=== PATIENT | male | born 1940 | race Caucasian/White ===

== ENCOUNTER 2018-07-19 09:39 | Outpatient (REF) | payer MEDICARE, SELFPAY ==
[2018-07-19 21:48] LABS: Abs Immature Grans 0.01 k/cumm (0.0-0.09); Absolute Basophil Count 0.03 k/cumm (0.0-0.2); Absolute Eosinophil Count 0.31 k/cumm (0.0-0.7); Absolute Monocyte Count 0.85 k/cumm (0.11-0.7); Absolute Neutrophil Count 4.01 k/cumm (1.2-6.7); Basophils % 0.4; Eosinophils % 4.1; HCT 42.8 % (40.0-50.0); HGB 14.1 g/dL (13.5-17.5); Immature Grans % 0.1; Lymphocytes % 31.5; Mean Corp. HGB Concentration 32.9 g/dL (32.0-36.0); Mean Corpuscular Hemoglobin 29.9 pg (27.0-33.0); Mean Corpuscular Volume 90.7 fL (80-95); Mean Platelet Volume 10.5 fL (8.0-11.0); Monocytes % 11.2; Neutrophils % 52.7; Platelet Count 409 x1000/uL (130-400); RBC 4.72 m/cumm (4.50-6.00); RBC Distribution Width 15.1 % (11.8-14.1); White Blood Cell Count 7.61 k/cumm (4.4-10.8)
[2018-07-19 21:49] LABS: Anion Gap 6.5 mmol/L (3-11); BUN 21 mg/dL (7-18); CO2 29.5 mmol/L (21.0-32.0); CREATININE 0.77 mg/dL (0.70-1.30); Calcium 9.3 mg/dL (8.5-10.1); Chloride 104 mmol/L (98-107); Glucose 91 mg/dL (70-100); Potassium 4.7 mmol/L (3.5-5.1); Sodium 140 mmol/L (136-145)
[2018-07-23 10:23] LABS: Anaplasma phagocytophilum Negative (Negative); B. miyamotoi PCR Negative (Negative); Babesia divergens/MO-1 Negative (Negative); Babesia duncani Negative (Negative); Babesia microti Negative (Negative); Ehrlichia chaffeensis Negative (Negative); Ehrlichia ewingii/canis Negative (Negative); Ehrlichia muris eauclairensis Negative (Negative)
[2018-07-23 13:05] LABS: Lyme Ab w Rflx to Lyme Confirm Negative
== END 2018-07-19 09:59 ==
LOC: NCHCN 09:39
PROVIDERS: Visit Provider Nurse Practitioner Family
DX: M25.60 Stiffness of unspecified joint, not elsewhere classified (principal); W57.XXXA Bitten or stung by nonvenomous insect and other nonvenomous arthropods, initial encounter; T14.8XXA Other injury of unspecified body region, initial encounter
CPT/HCPCS: 80048; 85025; 86618; 87798

== ENCOUNTER 2018-07-27 09:59 | Outpatient (REF) | payer MEDICARE, SELFPAY ==
--- NOTE | 2018-07-27 08:30 | SKI_PTH ---
PATIENT: Robert Canseco LOC: [facility] U#:[id number] AGE/SX: 78/M ROOM: RE07/27/[address]: Orquidea Keys : 1940 BED: DIS: 07/27/2018 SPEC #: [id number] RECD: 07/30/18 12:44 STATUS: BRIANDA REEliecer #: [id number] YUDITH: 07/27/18 08:[address]: Orquidea Keys DEPT: Surgical Specimen RECD BY: Krystal Avelar ENTERED: 07/30/18 12:44 SP TYPE: TABITHA RESENDIZ DR: Celestine Chapman Tissues: 1 - SKIN BIOPSY(SHAVE/PUNCH) Procedures: SKIN LEVEL 4 Comments: [id number]
== END 2018-07-27 10:19 ==
LOC: LBN 09:59
PROVIDERS: Visit Provider Nurse Practitioner Family
DX: C44.612 Basal cell carcinoma of skin of right upper limb, including shoulder (principal)
CPT/HCPCS: 88305

== ENCOUNTER 2018-12-13 16:07 | Outpatient (REF) | payer MEDICARE, SELFPAY ==
[2018-12-13 21:46] LABS: ALT 21 U/L (12-78); AST 16 U/L (15-37); Albumin 3.3 g/dL (3.4-5.0); Alkaline Phosphatase 91 U/L (46-116); Anion Gap 6.3 mmol/L (3-11); BUN 23 mg/dL (7-18); Bilirubin, Total 0.4 mg/dL (0.2-1.0); CO2 29.7 mmol/L (21.0-32.0); CREATININE 1.33 mg/dL (0.70-1.30); Calcium 8.9 mg/dL (8.5-10.1); Chloride 103 mmol/L (98-107); Estimated GFR 51.87 (mL/min/1.73m2); Glucose 93 mg/dL (70-100); Potassium 4.5 mmol/L (3.5-5.1); Sodium 139 mmol/L (136-145); Total Protein 6.8 g/dL (6.4-8.2)
[2018-12-13 21:47] LABS: Abs Immature Grans 0.02 k/cumm (0.0-0.09); Absolute Basophil Count 0.04 k/cumm (0.0-0.2); Absolute Eosinophil Count 0.51 k/cumm (0.0-0.7); Absolute Lymphocyte Count 3.21 k/cumm (1.2-3.4); Absolute Monocyte Count 1.04 k/cumm (0.11-0.7); Absolute Neutrophil Count 3.91 k/cumm (1.2-6.7); Basophils % 0.5; Eosinophils % 5.8; HCT 38.8 % (40.0-50.0); HGB 12.7 g/dL (13.5-17.5); Immature Grans % 0.2; Lymphocytes % 36.8; Mean Corp. HGB Concentration 32.7 g/dL (32.0-36.0); Mean Corpuscular Hemoglobin 29.8 pg (27.0-33.0); Mean Corpuscular Volume 91.1 fL (80-95); Mean Platelet Volume 10.1 fL (8.0-11.0); Monocytes % 11.9; Neutrophils % 44.8; Platelet Count 403 x1000/uL (130-400); RBC 4.26 m/cumm (4.50-6.00); RBC Distribution Width 15.1 % (11.8-14.1); White Blood Cell Count 8.73 k/cumm (4.4-10.8)
== END 2018-12-13 16:27 ==
LOC: NCHCN 16:07
PROVIDERS: Visit Provider Family Medicine
DX: K92.1 Melena (principal)
CPT/HCPCS: 80053; 85025

== ENCOUNTER 2018-12-14 21:19 | Outpatient (REF) | payer MEDICARE, SELFPAY ==
[2018-12-17 11:27] LABS: Campylobacter PCR SEE COMMENTS; Salmonella PCR SEE COMMENTS; Shiga Toxin PCR SEE COMMENTS; Shigella/Enteroinvasive Ecoli SEE COMMENTS
== END 2018-12-14 21:39 ==
LOC: NCHCN 21:19
PROVIDERS: Visit Provider Family Medicine
DX: K92.1 Melena (principal)
CPT/HCPCS: 87505

== ENCOUNTER 2020-01-09 21:40 | Outpatient (REF) | payer MEDICARE, SELFPAY ==
[2020-01-11 10:50] LABS: Campylobacter PCR Negative (Negative); Salmonella PCR Negative (Negative); Shiga Toxin PCR Negative (Negative); Shigella/Enteroinvasive Ecoli Negative (Negative)
== END 2020-01-09 22:00 ==
LOC: NCHCN 21:40
PROVIDERS: Visit Provider Nurse Practitioner Family
DX: R19.7 Diarrhea, unspecified (principal)
CPT/HCPCS: 87329; 87505; 87177; 87324

== ENCOUNTER 2021-08-11 19:26 | Outpatient (REF) | payer MEDICARE, SELFPAY ==
[2021-08-11 21:03] LABS: Hemoglobin A1C 6.1 % (<5.7)
[2021-08-11 21:04] LABS: Calculated LDL 135 mg/dL (<100); Cholesterol 206 mg/dL (<200); Glucose 101 mg/dL (74-106); HDL Cholesterol 58 mg/dL (40-60); Triglyceride 67 mg/dL (<150)
[2021-08-12 19:40] LABS: PSA, Screening <0.1 ng/mL (0.0-6.5)
== END 2021-08-11 19:27 | disposition home or self-care (01) ==
LOC: NCHCN 19:26
PROVIDERS: Visit Provider Nurse Practitioner Family
DX: Z12.5 Encounter for screening for malignant neoplasm of prostate (principal); E78.5 Hyperlipidemia, unspecified; Z00.00 Encounter for general adult medical examination without abnormal findings
CPT/HCPCS: 80061; 82947; 84153; 83036

== ENCOUNTER 2022-12-30 18:21 | Outpatient (REF) | payer MEDICARE, SELFPAY ==
[2022-12-30 15:16] LABS: HCT 44.3 % (40.0-50.0); HGB 14.5 g/dL (13.5-17.5); MCH 29.6 pg (27.0-33.0); MCHC 32.7 % (32.0-36.0); MCV 90 fL (80-95); MPV 10.4 fL (8.0-11.0); Platelet Count 421 10^3/uL (130-400); RDW-SD 49.7 fL; WBC 13.96 10^3/uL (4.4-10.8)
[2022-12-30 15:41] LABS: ALT 26 U/L (16-63); AST 22 U/L (15-37); Albumin 3.6 g/dL (3.4-5.0); Alkaline Phosphatase 99 U/L (46-116); Anion Gap 9.4 mmol/L (3-11); BUN 12 mg/dL (7-18); Bilirubin, Total 0.9 mg/dL (0.2-1.0); CO2 27.6 mmol/L (21.0-32.0); CREATININE 0.8 mg/dL (0.70-1.30); Calcium 8.9 mg/dL (8.5-10.1); Chloride 103 mmol/L (98-107); Estimated GFR 87.81 (mL/min/1.73m2); Glucose 101 mg/dL (74-106); Potassium 4.1 mmol/L (3.5-5.1); Sodium 140 mmol/L (136-145); Total Protein 6.9 g/dL (6.4-8.2)
[2023-01-02 10:13] LABS: PSA, Screening <0.1 ng/mL (<=6.5)
== END 2022-12-30 18:22 | disposition home or self-care (01) ==
LOC: NCHCN 18:21
PROVIDERS: Visit Provider Family Medicine
DX: R19.7 Diarrhea, unspecified (principal); Z12.5 Encounter for screening for malignant neoplasm of prostate; R10.10 Upper abdominal pain, unspecified
CPT/HCPCS: 80053; 84153; 85027